=== PATIENT | male | born 1990 | race American Indian/Alaskan Native ===

== ENCOUNTER 2017-03-07 10:13 | Emergency (ER) | payer OTHER ==
[2017-03-07 10:23] VITALS: BP 129/92
[2017-03-07 10:46] LABS: Bilirubin,Urine NEG (Negative); Blood,Urine MOD (Negative); Ketones,Urine NEG (Negative); Leukocyte Esterase,Urine NEG (Negative); Mucus,Urine FEW /HPF; Nitrite,Urine NEG (Negative); Protein,Urine <15 mg/dL mg/dL (Negative); Urobilinogen,Urine < 2.0 mg/dL (<2.0)
[2017-03-07 11:06] LABS: Eosinophils % (Auto) 2.1 % (0.0-4.3); Hematocrit 49.5 % (35.5-45.6); Hemoglobin 16.8 gm/dl (11.8-15.2); Mean Corpuscular HGB Conc 34 % (32-34); Mean Corpuscular Hemoglobin 30 pg (28-32); Mean Corpuscular Volume 90 fl (84-94); Platelet Count 203 K/mm3 (140-440); Red Blood Count 5.52 M/mm3 (3.65-5.03); Red Cell Distribution Width 14.1 % (13.2-15.2)
[2017-03-07 11:27] LABS: Anion Gap 17 mmol/L; BUN/Creatinine Ratio 15.55; Blood Urea Nitrogen 14 mg/dL (9-20); Calcium 10.1 mg/dL (8.4-10.2); Carbon Dioxide 29 mmol/L (22-30); Chloride 101.9 mmol/L (98-107); Glucose 94 mg/dL (75-100); Potassium 5.1 mmol/L (3.6-5.0); Sodium 143 mmol/L (137-145)
--- NOTE | 2017-03-07 12:27 | Emergency Department Report ---
ED Male HPI - General Chief complaint: Urogenital-Male Stated complaint: URINATING BLOOD Time Seen by Provider: 03/07/17 11:20 Source: patient Mode of arrival: Ambulatory Limitations: No Limitations - History of Present Illness Initial comments: pt is a 26 y/o aam who present for hematuria intermittent x 2 days denies hx of renal stones no fever no chills no abdominal pain no n/v last contact 4 days ago , denies penile discharge no rash no lesion no open sores, does endorse urinary frequency and urgency with intermittent dysuria no testicular pain no swelling , MD Complaint: dysuria Onset/Timin -: days(s) Location: penis Radiation: none Severity: mild Severity scale (0 -10): 3 Quality: other (spasm) Consistency: intermittent Improves with: none Worsens with: urination urinary retention, blood in urine, dysuria. denies: discharge, swelling, mass, rash, fever, nausea/vomiting, incontinence - Related Data Sexually active: Yes Previous Rx's Medication Instructions Recorded Last Taken Type Doxycycline [Vibramycin CAP] 100 mg PO Q12HR #20 capsule 03/07/17 Unknown Rx Allergies Allergy/AdvReac Type Severity Reaction Status Date / Time shellfish derived Allergy Swelling Verified 03/07/17 10:14 ED Review of Systems ROS: Stated complaint: URINATING BLOOD Other details as noted in HPI Constitutional: denies: chills, fever Eyes: denies: eye pain, eye discharge, vision change ENT: denies: ear pain, throat pain Respiratory: denies: cough, shortness of breath, wheezing Cardiovascular: denies: chest pain, palpitations Endocrine: no symptoms reported Gastrointestinal: denies: abdominal pain, nausea, diarrhea Genitourinary: urgency, dysuria, frequency, hematuria. denies: discharge, testicular pain, testicular mass Musculoskeletal: denies: back pain, joint swelling, arthralgia Skin: denies: rash, lesions Neurological: denies: headache, weakness, paresthesias Psychiatric: denies: anxiety, depression Hematological/Lymphatic: denies: easy bleeding, easy bruising ED Past Medical Hx - Past Medical History Previous Medical History?: No - Surgical History Past Surgical History?: No - Social History Smoking Status: Current Every Day Smoker Substance Use Type: Marijuana - Medications Home Medications: Home Medications Medication Instructions Recorded Confirmed Last Taken Type Doxycycline [Vibramycin CAP] 100 mg PO Q12HR #20 capsule 03/07/17 Unknown Rx ED Physical Exam - General Limitations: No Limitations General appearance: alert, in no apparent distress - Head Head exam: Present: atraumatic, normocephalic - Eye Eye exam: Present: normal appearance - ENT ENT exam: Present: mucous membranes moist - Neck Neck exam: Present: normal inspection - Respiratory Respiratory exam: Present: normal lung sounds bilaterally. Absent: respiratory distress - Cardiovascular Cardiovascular Exam: Present: regular rate, normal rhythm. Absent: systolic murmur, diastolic murmur, rubs, gallop - GI/Abdominal GI/Abdominal exam: Present: soft, normal bowel sounds - Rectal Rectal exam: Present: deferred - exam: Present: normal inspection. Absent: testicular tenderness, urethral discharge, scrotal swelling External exam: Present: normal external exam. Absent: erythema, swelling, lesions, lacerations, ecchymosis, bleeding - Extremities Exam Extremities exam: Present: normal inspection - Back Exam Back exam: Present: normal inspection, full ROM, tenderness, CVA tenderness (L) . Absent: muscle spasm, paraspinal tenderness, vertebral tenderness - Neurological Exam Neurological exam: Present: alert, oriented X3 - Psychiatric Psychiatric exam: Present: normal affect - Skin Skin exam: Present: warm, dry, intact, normal color. Absent: rash ED Course Vital Signs 03/07/17 10:15 Temperature 97.9 F Pulse Rate 68 Respiratory 18 Rate Blood Pressure 129/92 O2 Sat by Pulse 100 Oximetry ED Medical Decision Making - Lab Data Result diagrams: 03/07/17 10:51 03/07/17 10:51 Laboratory Tests 03/07/17 03/07/17 03/07/17 10:51 10:51 Unknown WBC 6.0 RBC 5.52 H Hgb 16.8 H Hct 49.5 H MCV 90 MCH 30 MCHC 34 RDW 14.1 Plt Count 203 Lymph % (Auto) 36.8 H Adams % (Auto) 7.8 H Eos % (Auto) 2.1 Baso % (Auto) 1.0 Lymph # 2.2 Adams # 0.5 Eos # 0.1 Baso # 0.1 Seg Neutrophils % 52.3 Seg Neutrophils # 3.1 Sodium 143 Potassium 5.1 H Chloride 101.9 Carbon Dioxide 29 Anion Gap 17 BUN 14 Creatinine 0.9 Estimated GFR > 60 BUN/Creatinine Ratio 15.55 Glucose 94 Calcium 10.1 Urine Color Straw Urine Turbidity Clear Urine pH 8.0 H Ur Specific [place] 1.008 Urine Protein <15 mg/dl Urine Glucose (UA) Neg Urine Ketones Neg Urine Blood Mod Urine Nitrite Neg Urine Bilirubin Neg Urine Urobilinogen < 2.0 Ur Leukocyte Esterase Neg Urine WBC (Auto) 1.0 Urine RBC (Auto) 82.0 U Epithel Cells (Auto) < 1.0 Urine Mucus Few - Radiology Data Radiology results: report reviewed CT abd and pelvis normal study - Medical Decision Making pt is a 26 y/o aam with idh sexually active last contact 4 days who presents for hematuria x 3 days pt endorses gross blood, and left flank pain denies hx of stones denies rash lesions no open sores, no abdominal pain no fever tolerating po intake without n/v , labs noted for ua: rbc 82, , K5.1, further interview pt endorses drinking energy drinks 3-4 daily , advised to decrease caffine and endergy drink intake, exam: no rash no lesion no hernia no penile discharge inguinal lymph, CT Stone protocol: Plan: tx for STI as symptoms started s/p uprotect intercouse 4 days ago , hydrate for k level,pt advised to decrease energy drinks and caffine intake, increase clear liquids ie : water, and follow up with primary care and health department for HIV screening and practice safe sex pt verbalized agreement and understanding of same. Critical care attestation.: If time is entered above; I have spent that time in minutes in the direct care of this critically ill patient, excluding procedure time. ED Disposition Clinical Impression: STI (sexually transmitted infection) Hematuria Qualifiers: Hematuria type: unspecified type Qualified Code(s): R31.9 - Hematuria, unspecified Disposition: TO HOME OR SELFCARE Is pt being admited?: No Does the pt Need Aspirin: No Condition: Good Instructions: Acute Hematuria (ED), Sexually Transmitted Diseases (ED) Additional Instructions: follow up with urologist as directed if symptoms no improved in 1-2 days , hydrated as directed Prescriptions: Doxycycline [Vibramycin CAP] 100 mg PO Q12HR #20 capsule Referrals: PRIMARY CARE, [Primary Care Provider] - 3-5 Days Forms: Work/School Release Form(ED) Time of Disposition: 14:18
[2017-03-07] MEDS ORDERED: ROCEPHIN IM ONE (12:30)
[2017-03-07] MEDS ORDERED: ZITHROMAX PO ONE (12:30)
[2017-03-07] MEDS ORDERED: XYLOCAINE 1% MPF 5 mL INFILTRATI ONE (12:30)
--- NOTE | 2017-03-07 13:57 | Cat Scan Report ---
CT of the abdomen and pelvis without contrast. History: Hematuria/flank pain. Findings: The liver, spleen, and upper abdominal viscera appear normal. The kidneys are normal in size and configuration with no evidence of mass, stones, or hydronephrosis. No ureteral stones or dilatation. No significant pelvic findings. Impression: Negative study.
== END 2017-03-07 14:21 | disposition home or self-care (01) ==
LOC: ED 10:13
DX: A64 Unspecified sexually transmitted disease (principal); R31.9 Hematuria, unspecified; F17.200 Nicotine dependence, unspecified, uncomplicated
CPT/HCPCS: 36415; 74176; 80048; 81001; 85025; 96372; 99284; J0696

== ENCOUNTER 2022-04-07 17:50 | Emergency (ER) | payer MEDICARE ==
[2022-04-07 20:22] VITALS: BP 134/70
--- NOTE | 2022-04-08 02:30 | Emergency Department Report ---
- General Chief complaint: Skin/Abscess/Foreign Body Stated complaint: WART ON FOOT/BACK PAIN Time Seen by Provider: 04/08/22 02:24 Source: patient Mode of arrival: Ambulatory Limitations: No Limitations - History of Present Illness Initial comments: Patient presents to the emergency department with bilateral feet abscess. Patient describes abscesses of the plantar aspect of his foot which has been reoccurring for over 2 weeks. States that he took from his blisters and every t che he would express that it would drain pus and blood". Has not followed up regarding this condition, symptoms are worse when he walks. He denies history of diabetes, bone conditions, no surgeries. Pain is worsened with ambulating and improves with nothing. Patient has not tried anything for his symptoms in the last 2 weeks as well. No chest pain, no nausea vomiting, no weakness dizziness fever chills, no swelling, no numbness tingling or paresthesias of the extremity. He denies any injury. MD complaint: discoloration Improves with: none Worsens with: none Context: none Associated symptoms: denies other symptoms Treatments Prior to Arrival: none - Related Data Previous Rx's Medication Instructions Recorded Last Taken Type DOXYCYCLINE Hyclate [Vibramycin 100 mg PO Q12HR #20 capsule 03/07/17 Unknown Rx CAP] Butenafine HCl [Lotrimin Ultra] 30 gm TP TID 7 Days #1 04/08/22 Unknown Rx Sulfamethoxazole/Trimethoprim 1 each PO BID #14 04/08/22 Unknown Rx [Bactrim DS TAB] Allergies Allergy/AdvReac Type Severity Reaction Status Date / Time shellfish derived Allergy Swelling Verified 03/07/17 10:14 Abscess Boil HPI - HPI Chief Complaint: Skin/Abscess/Foreign Body Stated Complaint: WART ON FOOT/BACK PAIN Time Seen by Provider: 04/08/22 02:24 Home Medications: Previous Rx's Medication Instructions Recorded Last Taken Type DOXYCYCLINE Hyclate [Vibramycin 100 mg PO Q12HR #20 capsule 03/07/17 Unknown Rx CAP] Butenafine HCl [Lotrimin Ultra] 30 gm TP TID 7 Days #1 04/08/22 Unknown Rx Sulfamethoxazole/Trimethoprim 1 each PO BID #14 04/08/22 Unknown Rx [Bactrim DS TAB] Allergies/Adverse Reactions: Allergies Allergy/AdvReac Type Severity Reaction Status Date / Time shellfish derived Allergy Swelling Verified 03/07/17 10:14 ED Review of Systems ROS: Stated complaint: WART ON FOOT/BACK PAIN Other details as noted in HPI Constitutional: denies: chills, fever ENT: as per HPI Respiratory: denies: cough Cardiovascular: denies: chest pain, palpitations Endocrine: denies: intolerance to cold, intolerance to heat Gastrointestinal: denies: abdominal pain, nausea, vomiting Genitourinary: denies: urgency Musculoskeletal: denies: back pain, joint swelling Skin: rash, lesions, change in color Neurological: denies: headache, weakness, numbness, paresthesias Hematological/Lymphatic: denies: easy bleeding, easy bruising ED Past Medical Hx - Social History Smoking Status: Current Every Day Smoker Substance Use Type: Marijuana - Medications Home Medications: Home Medications Medication Instructions Recorded Confirmed Last Taken Type DOXYCYCLINE Hyclate [Vibramycin 100 mg PO Q12HR #20 capsule 03/07/17 Unknown Rx CAP] Butenafine HCl [Lotrimin Ultra] 30 gm TP TID 7 Days #1 04/08/22 Unknown Rx Sulfamethoxazole/Trimethoprim 1 each PO BID #14 04/08/22 Unknown Rx [Bactrim DS TAB] ED Physical Exam - General Limitations: No Limitations General appearance: alert, in no apparent distress - Head Head exam: Present: atraumatic - Eye Eye exam: Present: normal appearance Pupils: Present: normal accommodation - Neck Neck exam: Present: normal inspection - Respiratory Respiratory exam: Present: normal lung sounds bilaterally. Absent: respiratory distress - Cardiovascular Cardiovascular Exam: Present: regular rate, normal rhythm - GI/Abdominal GI/Abdominal exam: Present: soft. Absent: distended, tenderness, guarding - Extremities Exam Extremities exam: Present: normal inspection, full ROM (Intact pulses and sensation cap refill), normal capillary refill. Absent: joint swelling - Expanded Lower Extremity Exam Right Foot/Toe exam: Present: full ROM, tenderness, calcaneal tenderness. Absent: ecchymosis, deformity 1 - diffuse callus formed areas, ttp. fungal foot, foul odor - Back Exam Back exam: Present: normal inspection, full ROM - Neurological Exam Neurological exam: Present: alert, oriented X3, CN II-XII intact, normal gait - Psychiatric Psychiatric exam: Present: normal affect, normal mood - Skin Skin exam: Present: warm, dry, intact, normal color ED Course Vital Signs 04/07/22 20:17 Temperature 98.5 F Pulse Rate 81 Respiratory 18 Rate Blood Pressure 134/70 [Right] O2 Sat by Pulse 97 Oximetry ED Medical Decision Making - Medical Decision Making Patient presents to the emergency department with bilateral feet abscess. Patient describes abscesses of the plantar aspect of his foot which has been reoccurring for over 2 weeks. States that he took from his blisters and every time he would express that it would drain pus and blood". Has not followed up regarding this condition, symptoms are worse when he walks. He denies history of diabetes, bone conditions, no surgeries. Pain is worsened with ambulating and improves with nothing. Patient has not tried anything for his symptoms in t he last 2 weeks as well. No chest pain, no nausea vomiting, no weakness dizziness fever chills, no swelling, no numbness tingling or paresthesias of the extremity. He denies any injury. Based on examination patient has multiple callus being formed, fungus feet as well, he is neurovascularly intact, discharged home with referral, hygiene, supportive shoes, feet care with understanding. Patient remained stable nontoxic-appearing, afebrile, ambulating steadily without assistance. Gone over ED findings with patient as well as plan for follow-up. Also discussed return precautions with patient, all questions and concerns addressed. Patient is stable to be discharged follow-up outpatient. Audio voice dictation device used, hence the chart might contain some dictation errors, mispronunciations, wrong spelling and wrong verbiage. Critical care attestation.: If time is entered above; I have spent that time in minutes in the direct care of this critically ill patient, excluding procedure time. ED Disposition Clinical Impression: Fungal infection of foot Disposition: HOME / SELF CARE / HOMELESS Is pt being admited?: No Does the pt Need Aspirin: No Condition: Stable Instructions: Athlete's Foot, [id number] Additional Instructions: Make sure you are wearing good support for your feet, wash your legs daily twice a day apply the cream of I have prescribed, trim your nails, keep the area clean and dry, take prescribed antibiotics, and follow-up with the vice president quality improvement. Prescriptions: Sulfamethoxazole/Trimethoprim [Bactrim DS TAB] 1 each PO BID #14 Butenafine HCl [Lotrimin Ultra] 30 gm TP TID 7 Days #1 Referrals: NATASHA BARKER MD [Staff Physician] - 3-5 Days
== END 2022-04-08 04:50 | disposition home or self-care (01) ==
LOC: ED 17:50
DX: L08.9 Local infection of the skin and subcutaneous tissue, unspecified (principal)
CPT/HCPCS: 99282